=== PATIENT | female | born 1995 | race Caucasian/White ===

== ENCOUNTER 2020-01-02 02:38 | Emergency (ER) | payer MEDICAID, OTHER ==
[~2020-01-02] VITALS: Ht 162.6 cm; Wt 70.5 kg
[~2020-01-02 02:38] MED LIST: BUSP10TA PO; DIVA500T2 PO; GABA600T7 PO; TRAZ-175 PO
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
[2020-01-02 03:14] LABS: BASOPHILS # (AUTO) 0.04 x10^3/uL (0-0.1); BASOPHILS % (AUTO) 0 % (0-1); EOSINOPHILS % (AUTO) 0 % (1-7); LYMPHOCYTES # (AUTO) 2.41 x10^3/uL (1-3.4); LYMPHOCYTES % (AUTO) 22 % (22-44); MD NO; MEAN CORPUSCULAR HEMOGLOBIN 31.2 pg (27.0-34.8); MEAN CORPUSCULAR HGB CONC 33.1 g/dL (32.4-35.8); MEAN CORPUSCULAR VOLUME 94.2 fL (80-100); MEAN PLATELET VOLUME 7.4 fL (7.4-10.4); MONOCYTES # (AUTO) 0.65 x10^3/uL (0.2-0.8); MONOCYTES % (AUTO) 6 % (2-9); NEUTROPHILS # (AUTO) 7.77 x10^3/uL (1.8-6.8); NEUTROPHILS % (AUTO) 72 % (42-75); PLATELET COUNT 274 x10^3/uL (130-400); RED BLOOD COUNT 4.24 x10^6/uL (3.82-5.3); RED CELL DISTRIBUTION WIDTH 13.5 % (9.6-15.2)
[2020-01-02 03:25] LABS: ALBUMIN 3.4 g/dL (3.4-5.0); ANION GAP 9 mmol/L (5-15); CALCIUM 8.6 mg/dL (8.5-10.1); CHLORIDE 109 mmol/L (98-107); SALICYLATE LEVEL 4.2 mg/dL (2.8-20.0)
[2020-01-02 03:31] LABS: ALANINE AMINOTRANSFERASE 13 U/L (12-78); ALKALINE PHOSPHATASE 57 U/L (45-117); BILIRUBIN,TOTAL 0.5 mg/dL (0.2-1.0); CREATININE 0.65 mg/dL (0.55-1.02); TOTAL PROTEIN 7.4 g/dL (6.4-8.2)
[2020-01-02] MEDS ORDERED: GABA600T7 PO (03:40)
[2020-01-02] MEDS ORDERED: CLON0.5T PO (03:46)
[2020-01-02] MEDS ORDERED: DIVA500T2 PO (03:46)
[2020-01-02] MEDS ORDERED: BUSP10TA PO ×2 (03:46)
[2020-01-02] MEDS ORDERED: ZIPR80CA2 PO (03:46)
[2020-01-02] MEDS ORDERED: PRAZ1CAP PO (03:46)
[2020-01-02 03:48] LABS: CULTURE INDICATED? YES; MICROSCOPIC INDICATED
[2020-01-02] MEDS ORDERED: TRAZ-175 PO (03:49)
[2020-01-02 03:58] LABS: AMPHETAMINE SCREEN, URINE Negative (Negative); BARBITURATE SCREEN, URINE Negative (Negative); BENZODIAZEPINE SCREEN, URINE Negative (Negative); CANNABINOID SCREEN, URINE Positive (Negative); COCAINE SCREEN, URINE Positive (Negative); METHADONE SCREEN, URINE Negative (Negative); OPIATE SCREEN, URINE Negative (Negative)
--- NOTE | 2020-01-02 04:04 | NUR ---
PT RESTING IN ROOM. COOPERATIVE WITH STAFF. TELEPSYCH PAGED.
--- NOTE | 2020-01-02 04:45 | NUR ---
TELEPSYCH SPEAKING WITH PT.
--- NOTE | 2020-01-02 06:24 | NUR ---
PT RESTING WITH NO COMPLAINTS AT THIS TIME.
--- NOTE | 2020-01-02 06:33 | NUR ---
PICKING MACHINE OPERATOR: PACKET FAXED TO [facility] AND CONFIRMATION FAX RECEIVED.
--- NOTE | 2020-01-02 06:36 | NUR ---
KIRAN BEACH FROM [facility] CALLED AND STATED THAT DR. REYES WILL BE ACCEPTING PATIENT. THEY ARE REQUESTING TRANSPORT TO BE SET UP FOR 0900 THIS AM.
--- NOTE | 2020-01-02 07:12 | NUR ---
REPORT GIVEN TO MARY BECK AT [facility]. PT SIGNED OUT TO JOSEPH BECK
--- NOTE | 2020-01-02 07:51 | NUR ---
REPORT RECEIVED FROM KIRAN MEJIAS. PT LAYING IN BED, RESPIRATIONS EVEN AND UNLABORED, NO SIGNS OF DISTRESS, IN VIEW OF SITTER.
[2020-01-02 08:12] VITALS: BP 98/54
--- NOTE | 2020-01-02 08:35 | NUR ---
TASK RN NOTE: PT LAYING ON SIDE IN BED, NAD NOTED AT THIS TIME. SITTER OUTSIDE OF ROOM FOR DIRECT OBSERVATION AND Q15 MIN SAFETY CHECKS.
--- NOTE | 2020-01-02 08:48 | NUR ---
PT AMBULATORY TO BATHROOM, STEADY GAIT. PT HAS EATEN HER BREAKFAST. REPORT GIVEN TO EMS, PT UPDATE OF POC.
== END 2020-01-02 08:58 | disposition home or self-care (01) ==
LOC: ED 03:42
DX: R45.851 Suicidal ideations (principal); Z91.14 Patient's other noncompliance with medication regimen; F41.9 Anxiety disorder, unspecified
CPT/HCPCS: 36415; 80053; 80307; 81001; 84703; 85025; 87086; 99283